=== PATIENT | female | born 1995 | race Caucasian/White ===

== ENCOUNTER 2018-11-16 08:36 | Emergency (ER) | payer MEDICAID ==
[2018-11-16] MEDS ORDERED: NS 1,000 ML IV ONE (09:19)
[2018-11-16] MEDS ORDERED: levETIRAcetam 500 MG TAB PO ONE (09:27)
[2018-11-16] MEDS ORDERED: lamoTRIgine 100 MG TAB PO ONE (09:27)
--- NOTE | 2018-11-16 09:32 | EDPHY ---
HPI/HX/ROS/PE/MDM Narrative: CHIEF COMPLAINT: Seizure HPI: The patient is a 23-year-old female with a history of seizure disorder. The patient states she was up at the [employer] last night and missed both her nighttime and morning dose of Lamictal and Keppra. [place] apparently had a witnessed tonic-clonic seizure that lasted approximately 2 min. Patient return to normal mental status. She is here because she is approximately 12 weeks and is concerned about the baby. She has been followed as an outpatient for this and has already had at least 2 ultrasounds that were normal. The patient denies recent trauma or illness. She complains of left shoulder pain which she states is due to a chronic injury. REVIEW OF SYSTEMS: Aside from elements discussed in the HPI, a comprehensive 10-point review of systems was reviewed and is negative. PMH: Includes history of seizure disorder. SOCIAL HISTORY: Denies alcohol or drug abuse. PHYSICAL EXAM: General:Patient is alert, in no acute distress. ENT:Eyes are normal to inspection. ENT inspection normal. Neck: Normal inspection. Full range of motion. Respiratory:No respiratory distress. Breath sounds normal bilaterally. Cardiovascular: Regular rate and rhythm. Strong peripheral pulses. Normal cap refill. Abdomen:The abdomen is nontender to palpation. There are no peritoneal signs. There are normal bowel sounds. Gravid. Back: Normal to inspection. No tenderness to palpation. Skin: Normal color. No rash. Warm and dry. Extremities: Normal appearance. Full range of motion. Tenderness to the lateral aspect shoulders present. The patient is able to pull herself up in bed using that arm without difficulty. Neuro: Oriented x3. Normal motor function. Normal sensory function. ED Course: 929: I performed a bedside US which shows an IUP of appropriate size with good movement and HR of approximately 150bpm. 0945: Patient informed me that she feels like she is about to have a seizure. Lamictal and Keppra have been ordered but are not yet available from pharmacy. I explained to the patient that we could give her a dose of lorazepam now but that this is Category D so could cause negative effects to her baby. She states she has had this medication before and wants to go ahead with it despite risks. While medication was being pulled up, patient noted to have short tonic- clonic seizure. Patient observed post-seizure in the hospital for several hours with return to baseline and no complaints. She refused further workup or observation and would like to be discharged. I strongly recommended she follow-up with her OBGYN and Neurologist FACUNDO. MDM: This patient presents with seizure in the setting of known epilepsy, likely brought on by non-compliance with anti-epileptic medication which patient admits to. Her presentation is complicated by current . I think ecclampisa as primary etiology of seizure is much less likely, and her BP is normal. FHR is normal. Ultimately patient refused further workup or observation. - Data Points Laboratory Results: Laboratory Results 11/16/18 09:30 11/16/18 09:30 11/16/18 11/16/18 11/16/18 09:30 09: 09:30 WBC 8.91 10^3/uL 10^3/uL (3.80-9.50) RBC 4.12 10^6/uL L 10^6/uL (4.18-5.33) Hgb 13.1 g/dL g/dL (12.6-16.3) Hct 36.4 % L % (38.0-47.0) MCV 88.3 fL fL (81.5-99.8) MCH 31.8 pg pg (27.9-34.1) MCHC 36.0 g/dL g/dL (32.4-36.7) RDW 12.8 % % (11.5-15.2) Plt Count 272 10^3/uL 10^3/uL (150-400) MPV 9.4 fL fL (8.7-11.7) Neut % (Auto) 77.4 % H % (39.3-74.2) Lymph % (Auto) 13.1 % L % (15.0-45.0) Hood % (Auto) 6.6 % % (4.5-13.0) Eos % (Auto) 2.0 % % (0.6-7.6) Baso % (Auto) 0.3 % % (0.3-1.7) Nucleat RBC Rel Count 0.0 % % (0.0-0.2) Absolute Neuts (auto) 6.89 10^3/uL H 10^3/uL (1.70-6.50) Absolute Lymphs (auto) 1.17 10^3/uL 10^3/uL (1.00-3.00) Absolute Monos (auto) 0.59 10^3/uL 10^3/uL (0.30-0.80) Absolute Eos (auto) 0.18 10^3/uL 10^3/uL (0.03-0.40) Absolute Basos (auto) 0.03 10^3/uL 10^3/uL (0.02-0.10) Absolute Nucleated RBC 0.00 10^3/uL 10^3/uL (0-0.01) Immature Gran % 0.6 % % (0.0-1.1) Immature Gran # 0.05 10^3/uL 10^3/uL (0.00-0.10) Sodium 137 mEq/L mEq/L (135-145) Potassium 4.0 mEq/L mEq/L (3.5-5.2) Chloride 107 mEq/L mEq/L (97-110) Carbon Dioxide 21 mEq/l L mEq/l (22-31) Anion Gap 9 mEq/L mEq/L (6-14) BUN 7 mg/dL mg/dL (7-23) Creatinine 0.5 mg/dL L mg/dL (0.6-1.0) Estimated GFR > 60 Glucose 83 mg/dL mg/dL (70-100) Calcium 9.3 mg/dL mg/dL (8.5-10.4) Urine Color PALE YELLOW Urine Appearance CLEAR Urine pH 7.0 (5.0-7.5) Ur Specific Arrey 1.010 (1.002-1.030) Urine Protein NEGATIVE (NEGATIVE) Urine Ketones NEGATIVE (NEGATIVE) Urine Blood NEGATIVE (NEGATIVE) Urine Nitrate NEGATIVE (NEGATIVE) Urine Bilirubin NEGATIVE (NEGATIVE) Urine Urobilinogen NEGATIVE EU EU (0.2-1.0) Ur Leukocyte Esterase NEGATIVE (NEGATIVE) Urine Glucose NEGATIVE (NEGATIVE) Medications Given: Discontinued Medications Sodium Chloride (Ns) 1,000 mls @ 0 mls/hr IV EDNOW ONE; Wide Open PRN Reason: Protocol Stop: 11/16/18 09:20 Last Admin: 11/16/18 09:31 Dose: 1,000 mls Lamotrigine (Lamictal) 300 mg PO EDNOW ONE Stop: 11/16/18 09:28 Last Admin: 11/16/18 10:05 Dose: 300 mg Levetiracetam (Keppra) 500 mg PO EDNOW ONE Stop: 11/16/18 09:28 Last Admin: 11/16/18 09:38 Dose: 500 mg Lorazepam (Ativan Injection) 1 mg IVP EDNOW ONE Stop: 11/16/18 09:45 Last Admin: 11/16/18 09:48 Dose: 1 mg General Time Seen by Provider: 11/16/18 08:45 Initial Vital Signs: Initial Vital Signs Temperature (C) 36.5 C 11/16/18 08:38 Heart Rate 120 H 11/16/18 08:38 Respiratory Rate 24 H 11/16/18 08:38 Blood Pressure 126/85 H 11/16/18 08:38 O2 Sat (%) 99 11/16/18 08:38 O2 Delivery Mode Room Air O2 (L/minute) 2 Allergies/Adverse Reactions: No Known Allergies Allergy (Unverified 11/16/18 08:37) Home Medications: Medication Instructions Recorded Keppra 11/16/18 LaMICtal 11/16/18 Departure - Departure Disposition: Home, Routine, Self-Care Clinical Impression: Seizure disorder, , Seizure Condition: Good Instructions: Epilepsy (DC) Additional Instructions: Follow-up with your OBGYN within 72 hr. Return to the emergency department immediately for recurrent seizure, headache, vomiting, abdominal pain, fever or other concerns. Referrals: KIRT CALDERA [Primary Care Provider] - As per Instructions
[2018-11-16] MEDS ORDERED: LORazepam 2 MG/ML INJ IVP ONE (09:44)
[2018-11-16] MEDS ORDERED: LORazepam 2 MG/ML INJ ONE (09:45)
[2018-11-16 09:46] LABS: PLATELET COUNT 272 10^3/uL (150-400)
[2018-11-16 12:41] VITALS: BP 123/97
== END 2018-11-16 12:43 | disposition home or self-care (01) ==
DX: G40.909 Epilepsy, unspecified, not intractable, without status epilepticus (principal); E86.9 Volume depletion, unspecified; O99.350 Diseases of the nervous system complicating pregnancy, unspecified trimester; Z3A.12 12 weeks gestation of pregnancy; Z79.899 Other long term (current) drug therapy
CPT/HCPCS: 96374; J2060